=== PATIENT | male | born 1950 | race Caucasian/White ===

== ENCOUNTER 2018-09-08 06:52 | Day surgery (SDC) | payer BC ==
[2018-09-08] MEDS ORDERED: PROPOFOL 10 MG/ML VIAL IV ONE (06:53)
[2018-09-08] MEDS ORDERED: MIDAZOLAM HCL 2MG/2ML VIAL IV ONE (06:53)
[2018-09-08] MEDS ORDERED: LIDOCAINE 2% MDV (20MG/ML) 20ML VIAL IV ONE (06:53)
[2018-09-08] MEDS ORDERED: FENTANYL PF 100MCG/2ML VIAL IV ONE (06:53)
[2018-09-08] MEDS ORDERED: RINGERS SOLUTION,LACTATED 1,000 ML IV ONE (07:36)
[2018-09-08] MEDS ORDERED: LIDOCAINE 1% W/EPI 1:200,000 MPF 30ML SQ ONE (08:09)
[2018-09-08] MEDS ORDERED: BUPIVACAINE 0.5% W/EPI MPF 30 ML VIAL SQ ONE (08:10)
[2018-09-08] MEDS ORDERED: BUPIVACAINE 0.5% (5MG/ML) PF 30ML VIAL SQ ONE (08:10)
[2018-09-08] MEDS ORDERED: DEXAMETHASONE PRESERVATIVE FREE 10MG/ML VIAL SQ ONE (08:10)
[2018-09-08] MEDS ORDERED: RINGERS SOLUTION,LACTATED 100 ML IV ONE (08:58)
--- NOTE | 2018-09-09 11:20 | Operative Note ---
DATE OF SURGERY: 09/08/2018 PREOPERATIVE DIAGNOSIS: Lumbar spondylosis without myelopathy, ICD10 code M47.816 with postlaminectomy, ICD10 code M96.1. OPERATION: Fluoroscopic-guided infiltration of block bilateral lumbar facets 3-4, 4-5, 5-1. ANESTHESIA: Local sedation. ANESTHESIA PROVIDER: Don Cedillo INDICATIONS: This patient presents with a history of spinal surgery lumbar spine and primary back pain. Examination showed tenderness of the lumbar spine. Range of motion does cause pain to the back with extension. Diagnostics do show laminectomy 5-1, subluxation 5-1, and diffuse spondylitic change. PROCEDURE: Intravenous line, vital sign monitoring, IV sedation, prepped and draped in sterile technique. Under imaging, facet levels of lumbar spine in the area of pain were identified and marked, 3-4, 4-5, 5-1 bilateral. Each one of these points on the skin infiltrated. A 22-gauge 7-inch needle into the facet, 1 mL of 0.5% Marcaine with dexamethasone injected. This was repeated at each of the sites bilaterally. The area was cleaned. Topical antibiotic and sterile dressing applied. Will monitor and evaluate. CC: Dr. Cornelius PELAYO
== END 2018-09-08 09:19 | disposition home or self-care (01) ==
LOC: SUR 06:52
PROVIDERS: ATTEND Pain Medicine Interventional Pain Medicine
DX: M47.816 Spondylosis without myelopathy or radiculopathy, lumbar region (principal); I10 Essential (primary) hypertension; Z79.4 Long term (current) use of insulin; E78.5 Hyperlipidemia, unspecified; E66.9 Obesity, unspecified
CPT/HCPCS: 36416; 82948; J7120

== ENCOUNTER 2018-10-06 07:32 | Day surgery (SDC) | payer BC ==
[2018-10-06] MEDS ORDERED: KETAMINE HCL 100MG/1ML VIAL INJ ONE (07:33)
[2018-10-06] MEDS ORDERED: MIDAZOLAM HCL 2MG/2ML VIAL IV ONE (07:33)
[2018-10-06] MEDS ORDERED: FENTANYL PF 100MCG/2ML VIAL IV ONE (07:33)
[2018-10-06] MEDS ORDERED: LIDOCAINE 2% MDV (20MG/ML) 20ML VIAL IV ONE (07:33)
[2018-10-06] MEDS ORDERED: PROPOFOL 10 MG/ML VIAL IV ONE (07:33)
[2018-10-06] MEDS ORDERED: RINGERS SOLUTION,LACTATED 1,000 ML IV ONE (08:05)
[2018-10-06] MEDS ORDERED: BUPIVACAINE 0.5% W/EPI MPF 30 ML VIAL SQ ONE (08:50)
[2018-10-06] MEDS ORDERED: DEXAMETHASONE PRESERVATIVE FREE 10MG/ML VIAL SQ ONE (08:50)
[2018-10-06] MEDS ORDERED: LIDOCAINE 1% W/EPI 1:100,000 MDV 20 ML VIAL SQ ONE (08:50)
--- NOTE | 2018-10-07 08:50 | Operative Note ---
DATE OF SURGERY: 10/06/2018 PREOPERATIVE DIAGNOSIS: Lumbar spondylosis without myelopathy, ICD10 code M47.816. OPERATION: Radiofrequency rhizotomy of bilateral lumbar facets 4-5 and 5-1. INDICATIONS: This patient presents with primary back pain. Examination showed diffuse tenderness of the lumbar spine. Range of motion does cause pain to the low back with extension. Diagnostic studies showed multiple-level spondylosis with disc abnormalities at 4-5 and 5-1. A facet series 75% pain control. Due to the failure of therapy and the success of facet series, patient presents for rhizotomy for more long-term relief. PROCEDURE: Intravenous line, vital sign monitoring, IV sedation, prepped and draped in sterile technique. Under imaging, facets at 4-5 and 5-1 identified and marked bilaterally. Skin infiltrated. Two separate 20-gauge rhizotomy cannulas positioned. Stimulation trial was conducted. Rhizotomy burn performed. Local with antiinflammatory into the sites. Topical antibiotic and sterile dressing applied. Will monitor and evaluate. CC: Dr. Cornelius PELAYO
== END 2018-10-06 09:30 | disposition home or self-care (01) ==
LOC: SUR 07:32
PROVIDERS: ATTEND Pain Medicine Interventional Pain Medicine
DX: M47.816 Spondylosis without myelopathy or radiculopathy, lumbar region (principal); I10 Essential (primary) hypertension; E11.9 Type 2 diabetes mellitus without complications; E78.00 Pure hypercholesterolemia, unspecified; G47.33 Obstructive sleep apnea (adult) (pediatric); Z79.4 Long term (current) use of insulin; E66.9 Obesity, unspecified
CPT/HCPCS: 64635; 64636; 01936; J1100; J3490; J7120

== ENCOUNTER → 2019-06-22 | Day surgery (SDC) | payer BC ==
[~2019-06-22] MED LIST: 0.9 % SODIUM CHLORIDE 1000ML 1,000 ML IV ONE; ACETAMINOPHEN 1,000 MG/100 ML BTL IVPB ONE; BUPIVACAINE 0.5% W/EPI MPF 30 ML VIAL SQ ONE; CEFAZOLIN 1 Gram 1 GM/50 ML BAG IVPB ONE; CEFAZOLIN 2 Gram 2 GM/50 ML BAG IVPB ONE; FAMOTIDINE 20MG TABLET PO ONE; FENTANYL PF 100MCG/2ML VIAL IV ONE; LIDOCAINE 1% W/EPI 1:100,000 MDV 20 ML VIAL SQ ONE; LIDOCAINE 2% MDV (20MG/ML) 20ML VIAL IV ONE; MECLIZINE 25 MG TABLET PO ONE; METOCLOPRAMIDE 10 MG TABLET PO ONE; MIDAZOLAM HCL 2MG/2ML VIAL IV ONE; PROPOFOL 10 MG/ML VIAL IV ONE; RINGERS SOLUTION,LACTATED 1,000 ML IV ONE
--- NOTE | 2019-06-22 06:58 | History and Physical - [facility] ---
CHIEF COMPLAINT/HISTORY OF CHIEF COMPLAINT: This patient presents with history of intractable lumbar radiculopathy. Due to the failure of all therapies, a spinal cord stimulator trial was conducted on 05/30/19 with 75% relief. Due to the failure of all therapy and the success of the trial, the patient presents for implantation of a permanent system. PAST MEDICAL HISTORY: Hypertension and sleep apnea. PAST SURGICAL HISTORY: Knee replacement. EMPLOYMENT STATUS: Works. MEDICATIONS ON ADMISSION: List to be provided. ALLERGIES: PERCOCET. FAMILY/PSYCHOSOCIAL HISTORY: Social history - Social alcohol and caffeine. Family history - Asthma, diabetes, coronary artery disease, hypertension, and cancer. SYSTEMS REVIEW: The patient is appropriate in no acute distress. The remainder of the systems review is positive for glasses, dentures, degenerative arthritis, depression and difficulty sleeping. PHYSICAL EXAMINATION: Height is 5'8", weight is 200 pounds. No vital signs. HEENT: Within normal limits. LUNGS: Clear. HEART: Rapid and regular. ABDOMEN: Nontender. MUSCULOSKELETAL: Examination of the musculoskeletal system shows diffuse tenderness throughout the lumbar spine. Range of motion does produce pain into the low back and extending into the lower extremities. Currently no motor or sensory abnormality is noted. Ambulation - No assistive device utilized. NEUROLOGIC: Cranial nerves are intact. IMPRESSION: LUMBAR RADICULOPATHY, ICD-10 CODE M54.16 AND M54.17. PLAN: Due to the failure of therapy and the success of the stimulator trial, the patient presents for implantation of a permanent system . The procedure will be considered outpatient, although an overnight stay will be evaluated. JOB NUMBER: [id number] MTDD
--- NOTE | 2019-06-23 07:41 | Operative Note - [facility] ---
DATE OF SURGERY: 06/22/2019 PREOPERATIVE DIAGNOSIS: INTRACTABLE LUMBAR RADICULOPATHY, ICD-10 CODE M54.16 AND M54.17. OPERATION: 1. FLUOROSCOPICALLY GUIDED LEFT EPIDURAL ACCESS T11-T12, PLACEMENT OF SPINAL CORD STIMULATOR LEAD 1 [employer] 16, 6-ELECTRODES POSITIONED LEFT T7. 2. FLUOROSCOPICALLY GUIDED EPIDURAL ACCESS LEFT T12-L1, PLACEMENT OF SPINAL CORD STIMULATOR LEAD 2 [employer] 16, 6-ELECTRODES, POSITIONED RIGHT T7. 3. COMPLEX PROGRAMMING OF LEAD 1 OVER TWENTY MINUTES FOLLOWED BY COMPLEX PROGRAMMING OF LEAD 2 OVER TWENTY MINUTES. 4. BECAUSE OF POOR STIMULATION PATTERNS LEAD 1 WAS REMOVED, LEAD 2 WAS REPOSITIONED MIDLINE UPPER ELECTRODE T7. 5. COMPLEX PROGRAMMING OF THE REMAINING LEAD OVER TWENTY MINUTES. 6. INCISION, SUBCUTANEOUS DISSECTION, AND ANCHORING OF LEAD TO THE SUPRASPINOUS FASCIA WITH A [employer] LOCKING ANCHOR AND NONABSORBABLE SUTURE. 7. INCISION, SUBCUTANEOUS DISSECTION, AND CREATION OF SUBCUTANEOUS POUCH AT THE LEFT POSTERIOR GLUTEAL MARGIN FOR GENERATOR [employer] PROGRAM[employer] RECHARGEABLE WAVEWRITER. 8. TUNNELLING BETWEEN LEAD POUCH, PLACEMENT OF EXTERNAL PORTION OF THE LEAD INTO GENERATOR POUCH, INTERFACE THE GENERATOR. 9. PLACEMENT OF GENERATOR POUCH, PLACEMENT OF LEAD INTO POUCH, CLOSURE OF BOTH INCISIONS WITH STRATAFIX SUTURE 2-0 FASCIA AND 3-0 SKIN. DERMABOND CLOSURE. 10. COMPLEX RECOVERY ROOM PROGRAMMING INTERNAL GENERATOR HOME USE SINGLE STIMULATOR RECOVERY ROOM TWENTY MINUTES. SURGEON: Jordy Escobar D.O. ANESTHESIA: Local sedation. ANESTHESIA PROVIDER: Don Cedillo CRNA INDICATION: This patient with a history of intractable lumbar radiculopathy had a successful spinal cord stimulator trial with 75% relief. Due to the failure of therapy and the success of the trial, he is here for permanent implantation. PROCEDURE: Intravenous line, vital sign monitoring, IV sedation, prepped and draped, sterile technique. The patient was positioned prone. Sterile prep, sterile technique. From the left epidural interspace T11-T12 and T12-L1 both marked, infiltrated, standard curved access Epimed needles with loss of resistance into the space at T11-T12. The spinal cord stimulator Lead 1 [employer] 16, 6-electrodes advanced, positioned left T7. With the access at T12-L1 spinal cord stimulator Lead 2 [employer] 16, 6- electrodes positioned right T7. Complex programming of Lead 1 over twenty minutes and complex programming of Lead 2 over twenty minutes resulted in inconsistent patterns of stimulation with Lead 1. After multiple attempts at reprogramming continued to show asymmetric and uneven stimulation Lead 1 was removed. Lead 2 was navigated towards the midline and complex programming over twenty minutes performed with a complete pattern of stimulation across the back into the legs. The situation was explained to the patient carefully, he had a single lead not two leads, he liked stimulation and wanted the implant. Questions were all repeated with the same response. He was re-sedated. The skin above and below the needle, the incision was infiltrated, subcutaneous dissection was conducted to the supraspinous fascia. With the Trend[employer] locking anchor nonabsorbable suture, the lead was anchored to the fascia. At the left posterior gluteal margin which is the site picked by the patient for the generator, the skin was infiltrated, incision made, and subcutaneous dissection was conducted to form a pouch of suitable size and depth for the generator [employer] programmable rechargeable Wavewriter. A tunnelling tool carried the lead into the generator pouch, the lead was interfaced with the generator. Antibiotic irrigation and Bovie for hemostasis. With the generator in the pouch and the lead into its own pouch, both incisions were closed using Stratafix suture 2-0 fascia and 3-0 skin. Dermabond closure approximating the edges of both wounds. He was transported to the Recovery Room stable. No side effects from the procedure or sedation. When fully awake and alert, complex programming of the single lead was performed reestablishing stimulation pain control to the areas. He was instructed on the use of the system and provided information on error messaging and then prepared for discharge. DISCHARGE INSTRUCTIONS: 1. The sites are to remain clean and dry. No showering or bathing in any way that would disrupt the dressings. If it happens contact the clinic. 2. Standard medications will be resumed including the antibiotic Levaquin, he will take 500 mg once a day for fourteen days. 3. Office will contact the patient in 24-48 hours to set up a time in 7-10 days for us to evaluate the sites. Until then he is to keep his activities low. All other instructions are provided. Numbers to contact if problems given. His antibiotic has been called by the hospital. JOB NUMBER: [id number] [facility]
--- NOTE | 2019-06-23 08:06 | RADIOLOGY REPORT ---
EXAMINATION: Spine Single View EXAM DATE: 06/22/2019 2:26 PM TECHNIQUE: Lateral view INDICATION: SCS IMPLANT, LEADS GENERATOR COMPARISON: None ENCOUNTER: Initial FINDINGS: Spinal stimulator device projects over the lower thoracic spine. See operative report for full descri ption of findings. IMPRESSION: 1.Spinal stimulator device projects over the lower thoracic spine. Dictated by: Martín Byrnes DO on 06/23/2019 8:03 AM. .
== END | disposition home or self-care (01) ==
LOC: SUR 10:47
PROVIDERS: ATTEND Pain Medicine Interventional Pain Medicine
DX: M54.16 Radiculopathy, lumbar region (principal); M54.17 Radiculopathy, lumbosacral region; E11.9 Type 2 diabetes mellitus without complications; Z79.4 Long term (current) use of insulin; I10 Essential (primary) hypertension; E78.00 Pure hypercholesterolemia, unspecified; E66.9 Obesity, unspecified; Z68.43 Body mass index [BMI] 50.0-59.9, adult; G47.33 Obstructive sleep apnea (adult) (pediatric)
CPT/HCPCS: 63650; 63685; 01936; 95972; 72020; C1883; C1820; J3010; J0690 ×2; J7030; J7120